=== PATIENT | male | born 1955 | race Caucasian/White ===

== ENCOUNTER → 2017-04-26 | Outpatient (CLI) | payer OTHER | LOC: BRMIMAGING 10:52 | PROVIDERS: ATTEND Psychiatry & Neurology Neurology | DX: Z13.820 Encounter for screening for osteoporosis (principal); G40.109 Localization-related (focal) (partial) symptomatic epilepsy and epileptic syndromes with simple partial seizures, not intractable, without status epilepticus ==

== ENCOUNTER → 2017-07-09 | Outpatient (CLI) | payer OTHER, MEDICARE ==
--- NOTE | 2017-07-09 14:27 | CPEEG ---
[f rep st] ELECTROENCEPHALOGRAM FOUR-HOUR VIDEO EEG. DATE OF STUDY: 07/09/2017 DATE OF INTERPRETATION: 07/09/2017. INTERPRETATION: This 4-hour video EEG contains a mild degree of focal slowing and asymmetry over the left frontocentrotemporal head regions. These findings would be consistent with the patient's known previous brain lesion and neurosurgical procedures. There were no potentially epileptogenic abnorma lities present during the awake or sleep recordings. No clinical events were recorded during the vid eo EEG monitoring session. REPORT: This 4-hour video EEG contains 9-10 Hz alpha activity to the posterior head regions. There is a mild degree of focal slowing and minimal asymmetry (breach rhythm) over the left frontocentrotem poral head regions. The slowing was characterized by mild intermittent polymorphic theta frequency a ctivity over these regions. There was no abnormal activation at rest, during photic stimulation or h yperventilation. The patient became drowsy and fell asleep during the study. There was no abnormal activation during drowsiness, sleep, or during times of arousal. The patient did not have any clinic al events during the video EEG monitoring session. /[id number]/MODL
== END ==
LOC: FCPNEURO 08:04
PROVIDERS: ATTEND Psychiatry & Neurology Neurology
DX: G93.0 Cerebral cysts (principal); G40.109 Localization-related (focal) (partial) symptomatic epilepsy and epileptic syndromes with simple partial seizures, not intractable, without status epilepticus

== ENCOUNTER → 2018-06-26 | Outpatient (CLI) | payer OTHER | LOC: FIMAGING 10:30 | PROVIDERS: ATTEND Family Medicine | DX: M54.40 Lumbago with sciatica, unspecified side (principal); M47.897 Other spondylosis, lumbosacral region ==

== ENCOUNTER → 2018-07-26 | Outpatient (CLI) | payer OTHER | LOC: FIMAGING 12:00 | PROVIDERS: ATTEND Family Medicine | DX: M25.551 Pain in right hip (principal); M54.16 Radiculopathy, lumbar region; E55.9 Vitamin D deficiency, unspecified; R73.9 Hyperglycemia, unspecified; K59.00 Constipation, unspecified ==